=== PATIENT | female | born 1990 ===

== ENCOUNTER 2023-07-23 05:00 | Inpatient (IN) | payer MEDICAID, OTHER ==
[~2023-07-23 05:00] MED LIST: Carboprost 250 MCG/ML AMP IM PRN; Diphenoxylate HCl/Atropine Tablet PO PRN; Lidocaine 1% (PF) 30 ML VIAL SC PRN; Methylergonovine 0.2 MG/ML VIAL IM PRN; Misoprostol 200 MCG TAB PR PRN; Ondansetron PF 4 MG/2 ML Vial IVP PRN; Oxytocin 30 units/NS 500 ML 500 ML IV SCH; Promethazine HCl 25 MG/ML VIAL IM PRN; Tranexamic Acid 1,000 MG/10 ML VIAL IVP PRN; fentaNYL 50 mcg/mL 1 mL Vial SLOW IVP PRN; hydrALAZINE 20 MG/ML VIAL SLOW IVP PRN
[2023-07-23] MEDS ORDERED: Bupivacaine 0.25% HCL 30 ML VIAL ONE (08:00)
[2023-07-23] MEDS ORDERED: Misoprostol 100 MCG TAB VAG SCH (21:00)
[2023-07-23 21:16] VITALS: BMI 24.3
[2023-07-23] MEDS ORDERED: Penicillin G Potassium 5 MILL.UNITS in Sodium Chloride 0.9% 100 ML IVPB SCH (21:30)
[2023-07-23 21:57] LABS: Hematocrit 39.2 % (34.9-44.5); Hemoglobin 13.3 g/dL (12.0-15.5); Mean Corpuscular HGB CONC 33.9 g/dL (32.0-36.0); Mean Corpuscular Hemoglobin 31.8 pg (27.0-33.0); Mean Corpuscular Volume 93.8 fl (81.6-98.3); Mean Platelet Volume 13.5 fl (7.4-10.4); Platelet Count 159 10x3/uL (150-450); RBC Distribution Width 13.4 % (11.5-14.5); Red Blood Cell (RBC) Count 4.18 10x6/uL (3.90-5.03); White Blood Cell (WBC) Count 4.8 10x3/uL (3.5-10.5)
[2023-07-23] MEDS: Misoprostol 100 MCG TAB PO SCH (21:59)
[2023-07-23 22:14] LABS: HBSAg Index 0.22 S/CO (0-0.99); Hep B Surf Ag - L&D Non-Reactive S/CO (NonReactive)
[2023-07-23 22:15] LABS: Syphilis Antibody Nonreactive (Nonreactive); Syphilis Antibody Index 0.04 S/CO (<1.00 Non-Reactive)
[2023-07-24] MEDS ORDERED: fentaNYL/Ropivacaine Epidural 100 ML ONE (04:47)
[2023-07-24] MEDS ORDERED: Moisturizing Cream (Eucerin) 113 GM JAR TOP PRN (05:48)
[2023-07-24] MEDS ORDERED: ePHEDrine Sulfate 50 MG/10 ML VIAL SLOW IVP PRN (05:48)
[2023-07-24] MEDS ORDERED: Lactated Ringer's 500 ML IV PRN (05:48)
[2023-07-24] MEDS ORDERED: Acetaminophen 325 MG TAB PO PRN (05:48)
[2023-07-24] MEDS ORDERED: diphenhydrAMINE 50 MG/ML VIAL IVP PRN (05:48)
[2023-07-24] MEDS ORDERED: Naloxone HCl 0.4 mg/ml Vial IVP PRN ×2 (05:48)
[2023-07-24] MEDS ORDERED: Promethazine HCl 25 MG/ML VIAL IM PRN (05:48)
[2023-07-24] MEDS ORDERED: Ondansetron PF 4 MG/2 ML Vial IVP PRN ×2 (05:48→12:16)
[2023-07-24] MEDS ORDERED: fentaNYL 2 mcg/Ropivacaine 0.2% Epidural 100 ML CADD EPIDURAL SCH (06:00)
[2023-07-24] MEDS ORDERED: Communication Order-Pharmacy FS SCH (06:00)
[2023-07-24] MEDS ORDERED: Penicillin G Potassium 5 MILL.UNITS in Sodium Chloride 0.9% 100 ML IVPB SCH (07:00)
[2023-07-24] MEDS: Penicillin G 2.5 MILL.units 2.5 MILL.UNITS in Premix 1 BAG IVPB SCH ×4 (10:35→15:17)
[2023-07-24] MEDS ORDERED: CEFAZOLIN 2 GM VIAL ONE (11:11)
[2023-07-24 12:14] LABS: Analyzer IN Cardio CS NICU; Critical Notified Whom: RN; RapidComm Collect By CBN
[2023-07-24 12:16] LABS: Analyzer IN Cardio CS NICU; RapidComm Collect By CBN; pH (Cord, venous) 7.234 (7.250-7.350)
[2023-07-24] MEDS ORDERED: Bisacodyl 10 MG SUPP PR PRN (12:16)
[2023-07-24] MEDS ORDERED: Benzocaine-Menthol 82.5 ML CAN TOP PRN (12:16)
[2023-07-24] MEDS ORDERED: hydrALAZINE 20 MG/ML VIAL SLOW IVP PRN (12:16)
[2023-07-24] MEDS ORDERED: HYDROcodone/Acetaminophen 5/325 mg Tablet PO PRN (12:16)
[2023-07-24] MEDS ORDERED: Boostrix 0.5 ML (Tdap) VIAL (>/=7 yrs of age) IM ONE (12:16)
[2023-07-24] MEDS ORDERED: Acetaminophen/Codeine 30-300mg Tablet PO SCH (12:30)
[2023-07-24] MEDS: Lactated Ringer's 1,000 ML IV SCH ×5 (15:15→22:29)
[2023-07-24] MEDS: Misoprostol 100 MCG TAB PO SCH (15:16)
[2023-07-24] MEDS: HYDROcodone/Acetaminophen 5/325 mg Tablet PO PRN ×2 (15:48→20:56)
[2023-07-24] MEDS: Ferrous Sulfate 325 MG TAB PO SCH (15:51)
[2023-07-24] MEDS: Ibuprofen 600 MG TAB PO SCH ×2 (18:18→23:24)
[2023-07-24] MEDS: Docusate 100 MG CAP PO SCH (20:56)
[2023-07-25] MEDS: HYDROcodone/Acetaminophen 5/325 mg Tablet PO PRN (05:11)
[2023-07-25] MEDS: Ibuprofen 600 MG TAB PO SCH ×3 (05:11→20:17)
[2023-07-25] MEDS: Ferrous Sulfate 325 MG TAB PO SCH (07:35)
[2023-07-25] MEDS: Lactated Ringer's 1,000 ML IV SCH ×2 (07:36→19:08)
[2023-07-25] MEDS: Milk Of Magnesia 30 ML UDCUP PO PRN (08:43)
[2023-07-25] MEDS: Polyethylene Glycol 3350 17 GM Packet PO PRN (08:43)
[2023-07-25] MEDS: Docusate 100 MG CAP PO SCH ×2 (08:43→20:17)
[2023-07-26] MEDS: Ibuprofen 600 MG TAB PO SCH ×2 (01:54→08:28)
[2023-07-26 07:55] VITALS: BP 111/68; TEMP 97.9
[2023-07-26] MEDS: Ferrous Sulfate 325 MG TAB PO SCH (08:15)
[2023-07-26] MEDS: Docusate 100 MG CAP PO SCH (08:28)
[2023-07-26] MEDS: Polyethylene Glycol 3350 17 GM Packet PO PRN (08:29)
[2023-07-26] MEDS: Milk Of Magnesia 30 ML UDCUP PO PRN (08:29)
[2023-07-26] MEDS: Lactated Ringer's 1,000 ML IV SCH (08:39)
== END 2023-07-26 14:45 | disposition home or self-care (01) | DRG 768 ==
LOC: CSHLD 20:45 → CSHPP 07-24 14:35
PROVIDERS: ADMIT Student in an Organized Health Care Education/Training Program; ATTEND Student in an Organized Health Care Education/Training Program
PROC: 10D07Z6 Extraction of Products of Conception, Vacuum, Via Natural or Artificial Opening (ICD-10-PCS; principal; 2023-07-24)
PROC: 0DQR0ZZ Repair Anal Sphincter, Open Approach (ICD-10-PCS; 2023-07-24)
PROC: 0KQM0ZZ Repair Perineum Muscle, Open Approach (ICD-10-PCS; 2023-07-24)
PROC: 3E033VJ Introduction of Other Hormone into Peripheral Vein, Percutaneous Approach (ICD-10-PCS; 2023-07-24)
PROC: 10H07YZ Insertion of Other Device into Products of Conception, Via Natural or Artificial Opening (ICD-10-PCS; 2023-07-24)
PROC: 3E0P7VZ Introduction of Hormone into Female Reproductive, Via Natural or Artificial Opening (ICD-10-PCS; 2023-07-24)
DX: O76 Abnormality in fetal heart rate and rhythm complicating labor and delivery (principal); Z37.0 Single live birth; O70.20 Third degree perineal laceration during delivery, unspecified; Z3A.40 40 weeks gestation of pregnancy
CPT/HCPCS: 36415; 51702; 82805; 85027; 86780; 86850; 86900; 86901; 87340; J2540; J3010; J3490; S0020